=== PATIENT | female | born 1955 | race Caucasian/White ===

== ENCOUNTER 2023-01-11 10:08 | Outpatient (AMB) | payer MEDICARE, SELFPAY ==
--- NOTE | 2023-01-11 10:16 | A.OFFVIS_ITS ---
Intake Vital Signs 01/11/23 10:20 Height 5 ft 5.5 in Weight 134 lb 7.712 oz BMI 22.0 BP 112/54 L Blood Pressure Location Lt brachial Position Sitting Pulse 92 Intake Visit Reasons: Internal Hemorrhoids Intake Note: Olive presents in the office as a new patient for internal hemorrhoids. CC: She states that she is having issues with her gastro but internal hemorrhoids were found on the colonoscopy. She states her bowels used to be more diarrhea but now it is constipation and fecal incontinence. She has bloating and pains in her stomach. Allergies amoxicillin Allergy (Mild, Verified 01/11/23 10:21) Unknown ciprofloxacin [From Cipro] Allergy (Mild, Verified 01/11/23 10:21) Unknown Sulfa (Sulfonamide Antibiotics) Allergy (Mild, Verified 01/11/23 10:21) Unknown z pack Allergy (Mild, Uncoded 01/11/23 10:21) Unknown HPI Internal Hemorrhoids HPI Details 67 yr old patient being seen for assessm ent for abn bowel habits She had an iron gut till [id number] she noted mostly diarrhea -going several times to toilet now its mostly constipation and fecal incontinence-- she can be unaware of stool being passed and she uses toilet paper to plug her anal area she has degen scoliosis --she denies sciatica, or pins and needles she can have several days without going to bathroom when she does go she can have several bouts of soft stools at time she has changed diet and this helped the stools less diarrheal and more constipation bothered by milk, bread and cheese, no nausea no vomiting no blood in stools she use to have heartburn, but not as noticeable she can have bloating She had colonoscopy, stool tests and CT, colonoscopy was neg, CT with possible renal lesion, being followed by urology PMH:low BP PSH: c section 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, 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, 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 FH:kidney disease ROS: Constitutional : No Weight loss, No Fever, No Chills ENT/Mouth : No sore throat, No Rhinorrhea Eyes: No Swelling, No Redness Cardiovascular : No Chest Pain, No SOB, No Edema Respiratory : No Cough, No Sputum, No Wheezing Gastrointestinal : see HPI Genitourinary : NO Dysuria, No Urinary Frequency, No Hematuria, No Urgency Musculoskeletal : No joint pain, No Myalgias, No Joint Swelling Skin : No Skin Lesions, No rash Neuro : No Weakness, No Numbness, No Dizziness, No Headache Psych : No Anxiety/Panic, No Depression Heme/Lymph: No Bruising, No Lymphadenopathy Endocrine : No Polyuria, No Polydipsia All other systems reviewed and are negative. EXAM: GENERAL: The patient is well developed and nontoxic. VITAL SIGNS:see workflow HEENT: Nonicteric sclerae, PERRLA, EOMI. Oropharynx clear. Moist mucous membranes. Conjunctivae appear well perfused. No thyroid mass. CHEST: Chest wall is nontender. HEART: Regular rate and rhythm without murmurs. LUNGS: Clear to auscultation bilaterally. ABDOMEN: Soft, positive bowel sounds, nontender, no organomegaly.no flank tenderness GENITAL:not done RECTAL: reduced sphincter tone, good evacuation and pushing pressure, nml sensation, no masses SKIN: No rash, no excessive bruising, petechiae, or purpura. NEUROLOGIC: Cranial nerves II-XII intact without motor/sensory deficit. scoliosis A/P: 1/ fecal incontinence, possible 2/2 nerv e damage from scoliosis or other injury 2/ bloating and constipation, ? SIBO, co lonic dysmotility, less likely, IBD< celiac, food intolerance, food allergies Plan: 1/ KUB 2/ trial of rifaximin, 3/ might consider ARM, defcography, disc ussed possible spinal stim (she has no urine incontinence) 4/ get labs and TSH PFSH Surgical History (Updated 01/11/23 @ 10:22 by BRISA Bran) Hx of knee surgery Hx of colonoscopy Social History (Updated 01/11/23 @ 10:22 by BRISA Bran) Household Members: None Alcohol intake: current Alcohol intake frequency: holidays/special occasions only Patient Tobacco Use Status: Never used Tobacco Physical Exam Vital Signs: Last Vital Signs Pulse 92 01/11/23 10:20 BP 112/54 L 01/11/23 10:20 BMI result Body Mass Index 22.0 Assessment & Plan Assessment & Plan (1) Altered bowel habits: Code(s): R19.4 - Change in bowel habit Orders: Orders XR KUB Today R19.4 - Change in bowel habit Medications: New rifaximin 550 mg PO TID 2 weeks 42 tabs 0RF Coding Level of Care Code New Pt Level 4 (41033) Diagnoses Altered bowel habits R19.4
[2023-01-11 10:20] VITALS: BP 112/54; PULSE 92; BMI 22.0
== END 2023-01-11 11:25 | disposition home or self-care (01) ==
PROVIDERS: PCP Internal Medicine Geriatric Medicine; Visit Provider Internal Medicine Gastroenterology
DX: R19.4 Change in bowel habit (principal)
CPT/HCPCS: 99204

== ENCOUNTER → 2023-01-11 10:08 | Outpatient (BNVA) | payer MEDICARE, SELFPAY | PROVIDERS: PCP Internal Medicine Geriatric Medicine; Visit Provider Internal Medicine Gastroenterology | DX: R19.4 Change in bowel habit (principal) | CPT/HCPCS: 99202 ==

== ENCOUNTER 2023-01-11 11:28 | Outpatient (REF) | payer MEDICARE, SELFPAY ==
--- NOTE | ~2023-01-11 | XR_ITS ---
EXAMINATION: XR ABDOMEN KUB CLINICAL INDICATION: Change in bowel habit, constipation. COMPARISON: None available. TECHNIQUE: 2 AP views of the abdomen. FINDINGS: Dextroscoliosis of the lumbar spine with advanced multilevel degenerative changes. Large amount of stool in the colon is compatible with stated history of constipation. Nonobstructive bowel gas pattern. Amorphous sclerotic/calcific density projects over the right intertrochanteric region, possibly representing a bony lesion versus soft tissue calcification. Dedicated views of the right hip are recommended for further evaluation. XR/XR KUB IMPRESSION: Large amount of stool in the colon is compatible with stated history of constipation. Nonobstructive bowel gas pattern. Amorphous sclerotic/calcific density projects over the right intertrochanteric region, possibly representing a bony lesion versus soft tissue calcification. Dedicated views of the right hip are recommended for further evaluation.
== END 2023-01-11 11:29 | disposition home or self-care (01) ==
LOC: HO.XRAY 11:28
PROVIDERS: PCP Internal Medicine Geriatric Medicine; Visit Provider Internal Medicine Gastroenterology
DX: R19.4 Change in bowel habit (principal)
CPT/HCPCS: 74018

== ENCOUNTER 2023-02-10 10:57 | Outpatient (REF) | payer MEDICARE, SELFPAY ==
--- NOTE | ~2023-02-10 | XR_ITS ---
EXAMINATION: XR HIP, RIGHT CLINICAL INFORMATION: Follow-up sclerotic density of right intertrochanteric region. COMPARISON: KUB dated 01/11/2023. TECHNIQUE: Two views of the right hip. FINDINGS: No fracture. Alignment is anatomic. Hip joint space is maintained. The right femoral head appears smooth. A small sclerotic, well marginated bone island is incidentally noted within the intertrochanteric region of the proximal right femur. Soft tissues are unremarkable. There are incompletely characterized degenerative changes of the lower lumbar spine. XR/XR hip RT min 2V IMPRESSION: A small sclerotic, well marginated bone island is incidentally noted within the intertrochanteric region of the proximal right femur. This has a benign, nonaggressive appearance. The examination is otherwise unremarkable.
== END 2023-02-10 10:58 | disposition home or self-care (01) ==
LOC: HO.HMGCX 10:57
PROVIDERS: PCP Internal Medicine Geriatric Medicine; Visit Provider Internal Medicine Gastroenterology
DX: M89.8X5 Other specified disorders of bone, thigh (principal)
CPT/HCPCS: 73502

== ENCOUNTER 2023-04-05 09:43 | Outpatient (AMB) | payer MEDICARE, SELFPAY ==
[2023-04-05 09:58] VITALS: BMI 22.3
--- NOTE | 2023-04-05 09:58 | A.OFFVIS_ITS ---
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 Patient describes her pain as sharp in nature. She denies any weakness in either lower extremity. She has tried Tylenol and anti-inflammatory medicines which gave her minimal relief. The patient states that she is currently undergoing evaluation for a gastrointestinal disorder. The patient states that she was told that her gastrointestinal issues might be related to lumbar spine pathology. Allergies amoxicillin Allergy (Mild, Verified 04/05/23 10:03) Unknown ciprofloxacin [From Cipro] Allergy (Mild, Verified 04/05/23 10:03) Unknown Sulfa (Sulfonamide Antibiotics) Allergy (Mild, Verified 04/05/23 10:03) Unknown z pack Allergy (Mild, Uncoded 01/11/23 10:21) Unknown Medication List - Last Reconciled 04/05/23 by Willi Evans MD calcium citrate-vitamin D3 315 mg-5 mcg (200 unit) (Calcium Citrate + D) 1 tab PO DAILY coenzyme Q10 100 mg PO DAILY estradiol 1 packet transdermal DAILY estradiol 0.01%(0.1mg/gram) 1 g vaginal QWEEK fexofenadine 60 mg PO DAILY magnesium 200 mg PO DAILY multivitamin 1 tab PO DAILY progesterone micronized 200 mg PO BEDTIME psyllium husk (Metamucil) 1 tbsp PO DAILY rifaximin 550 mg PO TID 2 weeks PFSH Surgical History (Updated 01/11/23 @ 10:22 by BRISA Bran) Hx of knee surgery Hx of colonoscopy Social History (Updated 01/11/23 @ 10:22 by BRISA Bran) Household Members: None Alcohol intake: current Alcohol intake frequency: holidays/special occasions only Patient Tobacco Use Status: Never used Tobacco Physical Exam Vital Signs: BMI result Body Mass Index 22.3 Const Other: Well-nourished well-developed very friendly female awake alert and oriented x3 in no acute distress Back/Spine/Pelvis Other: Low back examination shows right-sided paraspinal muscle tenderness, pain with range of motion, positive straight leg raise test on the right at 70 degrees Extrem Other: Right hip examination shows minimal discomfort with range of motion, mild tenderness over her bursa Results Reviewed Results Reviewed: X-rays of the patient's right hip show mild diffuse joint space narrowing as well as a small, sclerotic, well-marginated bone island within the proximal femur, no acute bony abnormalities X-ray of the patient's lumbar spine shows advanced diffuse degenerative disc disease, no acute bony abnormalities Assessment & Plan Assessment & Plan (1) Low back pain: Code(s): M54.50 - Low back pain, unspecified Plan Ms. Shaver presents with progressively worsening low back pain which radiates down the posterior aspect of her right leg most likely due to lumbar stenosis or a disc herniation. The patient also has gastrointestinal problems which could be related to lumbar spine pathology. Thus, I will send her for an MRI of her lumbar spine for further evaluation. I will contact her by phone once the MRI results are available. She will call me prior to that time should her symptoms worsen in any way. Feel free to call me at any time should questions regarding her orthopedic management arise. I spent 22 minutes in reviewing the patient's records and imaging studies, seeing the patient and documenting in the medical record. Orders: Orders MR lumbar spine wo con Today M54.50 - Low back pain, unspecified Coding Level of Care Code New Pt Level 2 (50212) Diagnoses Low back pain M54.50
== END 2023-04-05 10:42 | disposition home or self-care (01) ==
PROVIDERS: PCP Internal Medicine Geriatric Medicine; Visit Provider Orthopaedic Surgery
DX: M54.50 Low back pain, unspecified (principal)
CPT/HCPCS: 99202

== ENCOUNTER → 2023-04-05 09:43 | Outpatient (BNVA) | payer MEDICARE, SELFPAY | PROVIDERS: PCP Internal Medicine Geriatric Medicine; Visit Provider Orthopaedic Surgery | DX: M54.50 Low back pain, unspecified (principal) | CPT/HCPCS: 99202 ==

== ENCOUNTER 2023-07-22 10:05 | Outpatient (REF) | payer MEDICARE, SELFPAY ==
--- NOTE | ~2023-07-22 | MR_ITS ---
EXAMINATION: MR LUMBAR SPINE WITHOUT CONTRAST CLINICAL INFORMATION: Low back pain COMPARISON: None available. TECHNIQUE: MRI of the lumbar spine was obtained using routine sequences without contrast. FINDINGS: There are marked T12-L1 dextroscoliosis and mild L4-L5 levoscoliosis. Evaluation of the intervertebral discs show: T12/L1: Intervertebral disc height is markedly decreased with marked loss of T2 signal in the left half. Moderate midline posterior disc extrusion along posterior border of L1 is seen. Bilateral T12/L1 neuroforamina are patent. Bilateral apophyseal joints are intact with normal alignment. Bilateral apophyseal joints show loss of joint space, sclerosis, facet hypertrophy and osteophytosis. L-1/L-2: Intervertebral disc height is markedly decreased with marked loss of T2 signal in the left half. Mild posterior and asymmetric left foraminal disc protrusion is seen. There is mild asymmetric left L1-L2 neuroforaminal stenosis. Bilateral apophyseal joints are intact with normal alignment. Bilateral apophyseal joints show loss of joint space, sclerosis, facet hypertrophy and osteophytosis. L2/L3: Intervertebral disc height is markedly decreased, with moderate loss of T2 signal. Mild posterior and bilateral foraminal disc protrusion is seen. Bilateral L2-L3 neuroforamina are patent. Bilateral apophyseal joints are intact with normal alignment. Bilateral apophyseal joints show loss of joint space, sclerosis, facet hypertrophy and osteophytosis. L3/L4: Intervertebral disc height is normal, with moderate loss of T2 signal. Mild posterior and bilateral foraminal disc protrusion is seen. There is mild spinal stenosis due to impingement by hypertrophic ligamentum flavum. Bilateral L3-L4 neuroforamina are patent. Bilateral apophyseal joints are intact with normal alignment. Bilateral apophyseal joints show loss of joint space, sclerosis, facet hypertrophy and osteophytosis. L4/L5: Intervertebral disc height is markedly decreased, with marked loss of T2 signal. Mild posterior and bilateral foraminal disc protrusion is seen. There is marked asymmetric right L4-L5 neuroforaminal stenosis. Bilateral apophyseal joints are intact with normal alignment. Bilateral apophyseal joints show loss of joint space, sclerosis, facet hypertrophy and osteophytosis. L5/S1: Intervertebral disc height is normal, with normal T2 signal. No posterior disc protrusion is seen. Bilateral L5-S1 neuroforamina are patent. Bilateral apophyseal joints are intact with normal alignment. Bilateral apophyseal joints show loss of joint space, sclerosis, facet hypertrophy and osteophytosis. Conus medullaris is seen normally at L1-L2 junction level. MR/MR lumbar spine wo con IMPRESSION: 1. Marked T12-L1 dextroscoliosis and mild L4-L5 levoscoliosis. 2. Multilevel advanced lumbar spondylosis including multilevel degenerative lumbar disc disease, relatively sparing L5-S1 level, multilevel posterior lumbar disc protrusion. 3. Moderate midline posterior disc extrusion along posterior border of L1. 4. Mild spinal stenosis at L3-L4 due to impingement by hypertrophic ligamentum flavum. 5. Marked asymmetric right L4-L5 and Mild asymmetric left L1-L2 neuroforaminal stenosis.
== END 2023-07-22 10:06 | disposition home or self-care (01) ==
LOC: HO.MRI 10:05
PROVIDERS: PCP Internal Medicine Geriatric Medicine; Visit Provider Orthopaedic Surgery
DX: M54.50 Low back pain, unspecified (principal)
CPT/HCPCS: 72148

== ENCOUNTER 2023-09-13 10:26 | Outpatient (AMB) | payer MEDICARE, SELFPAY ==
--- NOTE | 2023-09-13 10:29 | MHC.OFFVIS ---
Vital Signs 09/13/23 10:33 Height 5 ft 5 in Weight 125 lb 10.616 oz BMI 20.9 BP 141/65 H Blood Pressure Location Lt brachial Position Sitting Pulse 76 Intake Visit Reasons: 4 month f/u Intake Note: Olive presents in the office as a 4 month follow up. CC: She states that she states that the abx had a 750 copay that she was unable to do. Still having the same symptoms but she is now losing weight. 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 Allergies amoxicillin Allergy (Mild, Verified 09/13/23 10:34) Unknown ciprofloxacin [From Cipro] Allergy (Mild, Verified 09/13/23 10:34) Unknown Sulfa (Sulfonamide Antibiotics) Allergy (Mild, Verified 09/13/23 10:34) Unknown z pack Allergy (Mild, Uncoded 09/13/23 10:34) Unknown HPI HPI 4 month f/u: Details: 67 yr old patient being seen for f/u for abn bowel habits RECAP She had an iron gut till [id number] she noted mostly diarrhea -going several times to toilet now its mostly constipation and fecal incontinence-- she can be unaware of stool being passed and she uses toilet paper to plug her anal area she has degen scoliosis --she denies sciatica, or pins and needles she can have several days without going to bathroom when she does go she can have several bouts of soft stools at time she has changed diet and this helped the stools less diarrheal and more constipation bothered by milk, bread and cheese, She had colonoscopy, stool tests and CT, colonoscopy was neg, CT with possible renal lesion, being followed by urology KUB: constipation, dextroscoliosis INTERIM: she has been losing weight per chart 10# over the last year she has noted fecal incontincence, more on the constipation pain lower abdomen bloating no nausea no vomiting she had occult blood in stools from a test done by functional doctor she tried bactrim from her functional doctor and it helped PMH:low BP PSH: c section 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, 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, 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 FH:kidney disease ROS: Constitutional : No Weight loss, No Fever, No Chills ENT/Mouth : No sore throat, No Rhinorrhea Eyes: No Swelling, No Redness Cardiovascular : No Chest Pain, No SOB, No Edema Respiratory : No Cough, No Sputum, No Wheezing Gastrointestinal : see HPI Genitourinary : NO Dysuria, No Urinary Frequency, No Hematuria, No Urgency Musculoskeletal : No joint pain, No Myalgias, No Joint Swelling Skin : No Skin Lesions, No rash Neuro : No Weakness, No Numbness, No Dizziness, No Headache Psych : No Anxiety/Panic, No Depression Heme/Lymph: No Bruising, No Lymphadenopathy Endocrine : No Polyuria, No Polydipsia All other systems reviewed and are negative. EXAM: GENERAL: The patient is well developed and nontoxic. VITAL SIGNS:see workflow HEENT: Nonicteric sclerae, PERRLA, EOMI. Oropharynx clear. Moist mucous membranes. Conjunctivae appear well perfused. No thyroid mass. CHEST: Chest wall is nontender. HEART: Regular rate and rhythm without murmurs. LUNGS: Clear to auscultation bilaterally. ABDOMEN: Soft, positive bowel sounds, nontender, no organomegaly.no flank tenderness GENITAL:not done RECTAL: reduced sphincter tone, good evacuation and pushing pressure, nml sensation, no masses SKIN: No rash, no excessive bruising, petechiae, or purpura. NEUROLOGIC: Cranial nerves II-XII intact without motor/sensory deficit. scoliosis A/P: 1/ altered bowel habits, fecal occult blood pos 2/ weight loss her sx may be due to her severe scoliosis, imaging reviewed with patient Plan: 1/ Labs as below 2/ colonoscopy, with suprep, for altered bowel habits and pos FOB 3/ can try VSL#3, also discussed posisble repeat on bactrim with fluconazole as she is prone to thrush PFSH Surgical History Hx of knee surgery Hx of colonoscopy Social History Household Members: None Alcohol intake: current Alcohol intake frequency: holidays/special occasions only Patient Tobacco Use Status: Never used Tobacco Physical Exam Vital Signs: Last Vital Signs Pulse 76 09/13/23 10:33 BP 141/65 H 09/13/23 10:33 BMI result Body Mass Index 20.9 Assessment & Plan Assessment & Plan (1) Altered bowel habits: Code(s): R19.4 - Change in bowel habit Category: Medical Plan: see above (2) Malnutrition: Code(s): E46 - Unspecified protein-calorie malnutrition Category: Medical Plan: see above Orders: Orders Comprehensive Met. Panel Today E46 - Unspecified protein-calorie malnutrition, K75.81 - Nonalcoholic steatohepatitis (BELL), R19.4 - Change in bowel habit Lactoferrin, Fecal, Quant. Today E46 - Unspecified protein-calorie malnutrition, K51.50 - Left sided colitis without complications, R19.4 - Change in bowel habit Erythrocyte Sedimentation Rate Today E46 - Unspecified protein-calorie malnutrition, R19.4 - Change in bowel habit Ferritin Today E46 - Unspecified protein-calorie malnutrition, R19.4 - Change in bowel habit Vitamin A Today E46 - Unspecified protein-calorie malnutrition, R19.4 - Change in bowel habit Vitamin B1 Today E46 - Unspecified protein-calorie malnutrition, R19.4 - Change in bowel habit Vitamin B12 and Folate Today E46 - Unspecified protein-calorie malnutrition, R19.4 - Change in bowel habit Vitamin C Today E46 - Unspecified protein-calorie malnutrition, R19.4 - Change in bowel habit Vitamin D 25-OH Total Today E46 - Unspecified protein-calorie malnutrition, R19.4 - Change in bowel habit Histamine Plasma Today E46 - Unspecified protein-calorie malnutrition, R19.4 - Change in bowel habit Complete Blood Count Auto Diff Today E46 - Unspecified protein-calorie malnutrition, R19.4 - Change in bowel habit Vitamin B3 (Niacin) Today E46 - Unspecified protein-calorie malnutrition, R19.4 - Change in bowel habit Vitamin B5 (Pantothenic Acid) Today E46 - Unspecified protein-calorie malnutrition, R19.4 - Change in bowel habit Vitamin B6 Today E46 - Unspecified protein-calorie malnutrition, R19.4 - Change in bowel habit Vitamin E Today E46 - Unspecified protein-calorie malnutrition, R19.4 - Change in bowel habit Vitamin K1 Today E46 - Unspecified protein-calorie malnutrition, R19.4 - Change in bowel habit Zinc Today E46 - Unspecified protein-calorie malnutrition, R19.4 - Change in bowel habit Medications: New sodium,potassium,mag sulfates 17.5-3.13-1.6 gram (Suprep Bowel Prep Kit) DILUTE; drink 1/2 at 6-8 pm and half at 11 PM- 1AM 354 mL 0RF Discontinued rifaximin Discontinued Reason: Patient no longer taking 550 mg PO TID 2 weeks 42 tabs 0RF Coding Level of Care Code Est Pt Level 4 (64740) Diagnoses Altered bowel habits R19.4 Malnutrition E46
[2023-09-13 10:33] VITALS: BP 141/65; PULSE 76; BMI 20.9
== END 2023-09-13 11:24 | disposition home or self-care (01) ==
PROVIDERS: PCP Internal Medicine Geriatric Medicine; Visit Provider Internal Medicine Gastroenterology
DX: R19.4 Change in bowel habit (principal); E46 Unspecified protein-calorie malnutrition
CPT/HCPCS: 99214

== ENCOUNTER 2023-09-13 10:26 | Outpatient (REF) | payer MEDICARE, SELFPAY ==
[2023-09-13 12:07] LABS: MANUAL DIFF FLAG NO
[2023-09-13 13:02] LABS: Basophils Percent Auto 0.6 % (0-2); Eosinophils Absolute Auto 0.2 X10*3/uL (0.0-0.4); Eosinophils Percent Auto 2.9 % (0-4); Hematocrit 37.6 % (37.0-47.0); Hemoglobin 13.1 g/dl (12.0-16.0); Imm Gran Abs Auto 0.02 X10*3/uL (0.00-0.03); Imm Gran Pct Auto 0.3 % (0.0-0.4); Lymphocytes Absolute Auto 1.4 X10*3/uL (1.2-4.9); Lymphocytes Percent Auto 21.5 % (20-40); Mean Corpuscular HGB Conc 34.8 g/dl (31.0-35.0); Mean Corpuscular Hemoglobin 31.3 pg (27.0-33.0); Mean Platelet Volume 10.2 fL (9.4-12.3); Monocytes Absolute Auto 0.5 X10*3/uL (0.1-1.2); Monocytes Percent Auto 7.6 % (2-11); Neutrophils Absolute Auto 4.4 x10*3/uL (2.0-8.3); Neutrophils Percent Auto 67.1 % (45-73); Platelet Count 188 X10*3/uL (160-400); Red Blood Count 4.18 X10*6/uL (4.20-5.50); Red Cell Distribution Width 12.6 % (11.0-16.0); White Blood Count 6.6 X10*3/uL (4.8-10.8)
[2023-09-13 13:37] LABS: Alanine Aminotransferase 18 U/L (0-31); Albumin Level 4.7 g/dL (3.5-5.0); Alkaline Phosphatase 54 U/L (39-117); Anion Gap 12 (12-20); Aspartate Amino Transferase 20 U/L (5-31); Bilirubin Total 0.7 mg/dL (0.0-1.0); Blood Urea Nitrogen 10 mg/dL (9-16); Calcium 9.3 mg/dL (8.4-10.2); Carbon Dioxide 23 mmol/L (22-29); Chloride 100 mmol/L (96-108); Estimated Glomerular Filt Rate > 60; Glucose Random 89 mg/dL (60-115); Potassium 3.9 mmol/L (3.3-5.1); Sodium 131 mmol/L (135-145); Total Protein 7.2 g/dL (6.5-8.0)
[2023-09-13 13:45] LABS: Erythrocyte Sedimentation Rate 3 MM/HR (0-20)
[2023-09-13 13:48] LABS: Ferritin 122 ng/mL (10-250); Vitamin D 25-OH Total 59.9 ng/mL (>30)
[2023-09-13 13:57] LABS: Folate 12.9 ng/mL (> or = 4.0); Vitamin B12 666 pg/mL (200-900)
[2023-09-16 02:49] LABS: Zinc 50 mcg/dL (60-130)
[2023-09-16 19:04] LABS: Alpha-Tocopherol 21.8 mg/L (5.7-19.9); Beta-Gamma Tocopherol <1.0 mg/L (<=4.3)
[2023-09-17 16:13] LABS: Vitamin B5 (Pantothenic Acid) 85 ng/mL (<275)
[2023-09-17 16:53] LABS: Vitamin C 1.9 mg/dL (0.3-2.7)
[2023-09-18 15:03] LABS: Vitamin K1 879 pg/mL (130-1500)
[2023-09-21 17:33] LABS: Histamine Plasma <1.5 ng/mL (< OR = 1.8)
[2023-10-07 11:02] LABS: Vitamin A 54
[2023-10-07 11:03] LABS: Vitamin B1 21
[2023-10-07 11:05] LABS: Nicotinamide <20; Vit B3 - Nicotinic Acid <20
== END 2023-09-13 10:27 | disposition home or self-care (01) ==
LOC: HO.LAB 10:26
PROVIDERS: PCP Internal Medicine Geriatric Medicine; Visit Provider Internal Medicine Gastroenterology
DX: K75.81 Nonalcoholic steatohepatitis (NASH) (principal); K59.00 Constipation, unspecified; K51.50 Left sided colitis without complications; E46 Unspecified protein-calorie malnutrition
CPT/HCPCS: 36415; 80053; 82180; 82306; 82607; 82728; 82746; 83088; 84207; 84425; 84446; 84590; 84591; 84597; 84630; 85025; 85652; 99212

== ENCOUNTER 2023-09-17 08:47 | Outpatient (REF) | payer MEDICARE, SELFPAY ==
--- NOTE | ~2023-09-17 | XR_ITS ---
EXAMINATION: XR LUMBOSACRAL SPINE CLINICAL INFORMATION: Secondary scoliosis, lumbar region. COMPARISON: MRI dated 07/22/2023 TECHNIQUE: Three views of the lumbosacral spine. FINDINGS: Moderate right convex lumbar scoliosis is centered at the level of L1. No spondylolisthesis. Multilevel degenerative disc disease in the lumbar spine is characterized by loss of vertebral disc height and endplate osteophytes, most pronounced at L4-L5 and along the inner curvature from T12-L1 through L2-L3. Facet arthropathy in the lower lumbar spine is asymmetric to the right, most notably at L4-L5 and L5-S1. SI joints are unremarkable. XR/XR lumbar spine 2-3V IMPRESSION: Moderate right convex lumbar scoliosis with multilevel degenerative disc disease and facet arthropathy.
== END 2023-09-17 08:48 | disposition home or self-care (01) ==
LOC: HO.HOSX 08:47
PROVIDERS: PCP Internal Medicine Geriatric Medicine; Visit Provider Neurological Surgery
DX: M51.36 Other intervertebral disc degeneration, lumbar region (principal); M41.56 Other secondary scoliosis, lumbar region
CPT/HCPCS: 72100; 99202

== ENCOUNTER 2023-09-17 09:10 | Outpatient (REF) | payer MEDICARE, SELFPAY ==
[2023-09-25 16:58] LABS: Lactoferrin, Fecal, Quant. <6.25 mcg/mL (<7.25)
== END 2023-09-17 09:11 | disposition home or self-care (01) ==
LOC: HO.LNP 09:10
PROVIDERS: Visit Provider Internal Medicine Gastroenterology
DX: K51.50 Left sided colitis without complications (principal); R19.4 Change in bowel habit; E46 Unspecified protein-calorie malnutrition
CPT/HCPCS: 83631

== ENCOUNTER 2024-01-20 08:40 | Day surgery (SDC) | payer MEDICARE, SELFPAY ==
[2024-01-18 13:10] VITALS: BMI 20.8
--- NOTE | 2024-01-19 09:20 | HO.ANESPROP2 ---
Documented by User: Greer Cardona NP 01/19/24 09:21 HPI - Anesthesia Eval Consult details Narrative: 68yo F for Colonoscopy PMFSH Active Problems Active Problems: All Active Problems Scoliosis of lumbar region due to degenerative disease of spine in adult (Acute) Malnutrition (Acute) Lumbar stenosis (Acute) Low back pain (Acute) Lytic bone lesion of hip (Acute) Altered bowel habits (Acute) Past Medical History Medical History Scoliosis Lumbar stenosis Kidney lesion Hypotension Surgical History Surgical History Hx of section Hx of knee surgery Hx of colonoscopy Social History Social History Household Members: None Alcohol intake: current Alcohol intake frequency: holidays/special occasions only Patient Tobacco Use Status: Former Tobacco user Use of substances other than those prescribed or required for medical reasons: No Are you DNR?: No Advance Directives: No Advance Directives Information Provided: Yes Recently lost weight without trying: No Meds Allergies Allergy/AdvReac Type Severity Reaction Status Date / Time amoxicillin Allergy Mild Unknown Verified 01/20/24 09:05 ciprofloxacin [From Cipro] Allergy Mild Unknown Verified 01/20/24 09:05 Sulfa (Sulfonamide Allergy Mild Unknown Verified 01/20/24 09:05 Antibiotics) z pack Allergy Mild Unknown Uncoded 09/13/23 10:34 Home Medications ?Medication ?Instructions ?Recorded ?Confirmed ?Last Taken ?Type calcium citrate 315 mg-vitamin D3 1 tab PO DAILY 01/11/23 01/20/24 Unknown History 5 mcg (200 unit) tablet (Calcium Citrate + D) coenzyme Q10 100 mg capsule 100 mg PO DAILY 01/11/23 01/20/24 Unknown History estradiol 0.01% (0.1 mg/gram) 1 g vaginal QWEEK 01/11/23 01/20/24 Unknown History vaginal cream fexofenadine 60 mg tablet 60 mg PO DAILY 01/11/23 01/20/24 Unknown History magnesium 200 mg tablet 200 mg PO DAILY 01/11/23 01/20/24 Unknown History multivitamin 1 tab PO DAILY 01/11/23 01/20/24 Unknown History progesterone micronized 200 mg 200 mg PO BEDTIME 01/11/23 01/20/24 Unknown History capsule psyllium husk 3.4 gram/5.4 gram 1 tbsp PO DAILY 01/11/23 01/20/24 Unknown History oral powder (Metamucil) estradiol 0.05 mg/24 hr semiweekly 1 patch transdermal 2XW 09/13/23 01/20/24 Unknown History transdermal patch Exam Height,Weight and Vital Signs: Height 5 ft 5 in Weight 56.699 kg Assessment and Plan Assessment Anesthesia Assessment: Chart Reviewed Documented by User: Sudha Livingston MD 01/20/24 10:28 FORMERLY [facility], [facility] Past Medical History Medical History Scoliosis Lumbar stenosis Kidney lesion Hypotension Surgical History Surgical History Hx of section Hx of knee surgery Hx of colonoscopy History of Problems with Anesthesia: No Social History Social History Household Members: None Alcohol intake: current Alcohol intake frequency: holidays/special occasions only Patient Tobacco Use Status: Former Tobacco user Use of substances other than those prescribed or required for medical reasons: No Are you DNR?: No Advance Directives: No Advance Directives Information Provided: Yes Recently lost weight without trying: No Meds Allergies Allergy/AdvReac Type Severity Reaction Status Date / Time amoxicillin Allergy Mild Unknown Verified 01/20/24 09:05 ciprofloxacin [From Cipro] Allergy Mild Unknown Verified 01/20/24 09:05 Sulfa (Sulfonamide Allergy Mild Unknown Verified 01/20/24 09:05 Antibiotics) z pack Allergy Mild Unknown Uncoded 09/13/23 10:34 Home Medications ?Medication ?Instructions ?Recorded ?Confirmed ?Last Taken ?Type calcium citrate 315 mg-vitamin D3 1 tab PO DAILY 01/11/23 01/20/24 Unknown History 5 mcg (200 unit) tablet (Calcium Citrate + D) coenzyme Q10 100 mg capsule 100 mg PO DAILY 01/11/23 01/20/24 Unknown History estradiol 0.01% (0.1 mg/gram) 1 g vaginal QWEEK 01/11/23 01/20/24 Unknown History vaginal cream fexofenadine 60 mg tablet 60 mg PO DAILY 01/11/23 01/20/24 Unknown History magnesium 200 mg tablet 200 mg PO DAILY 01/11/23 01/20/24 Unknown History multivitamin 1 tab PO DAILY 01/11/23 01/20/24 Unknown History progesterone micronized 200 mg 200 mg PO BEDTIME 01/11/23 01/20/24 Unknown History capsule psyllium husk 3.4 gram/5.4 gram 1 tbsp PO DAILY 01/11/23 01/20/24 Unknown History oral powder (Metamucil) estradiol 0.05 mg/24 hr semiweekly 1 patch transdermal 2XW 09/13/23 01/20/24 Unknown History transdermal patch Exam Airway Mallampati Class: II TM Dist: >3cm Neck ROM: Full Loose/Missing/Broken Teeth: No Heart: RRR Lungs: CTA Assessment and Plan Assessment Anesthesia Assessment: Anesthesia Plan Discussed Final Anesthetic Review History of Problems with Anesthesia: No NPO: Yes ASA Class: II Final Preanesthetic Review: Meds/Allgs Chart Reviewed, Consent Obtained/Reviewed and Anes Risks/Benef Reviewed Patient Risk: Low Procedure Risk: Low Anesthetic Plan Anesthetic Plan: MAC: Disposition: Standard PACU
[2024-01-20 09:06] VITALS: BMI 20.1
[2024-01-20 09:14] VITALS: BP 112/82; PULSE 69; RESP 15; TEMP 36.4; O2SAT 99
[2024-01-20] MEDS: Lactated Ringers 1,000 ML 100 ML IVCONT (09:29)
--- NOTE | 2024-01-20 09:33 | P.HPSUR_ITS ---
Pre-Procedural Eval Section A - 24 Hr Update-Section A only Date of Service: 01/20/24 Section B - Complete if H&P > 30 days Chief Complaint: Change in bowel habit,protein-calorie malnutrtion Relevant Family History (Specify if Yes): No Relevant Social History: None Present Medications: see Short Stay Collaborative assessment Medical History: Significant History (scoliosis) History of Previous Operations: Relevant previous surgery/procedure and date(s) (c section ) Allergies: Allergies Allergy/AdvReac Type Severity Reaction Status Date / Time amoxicillin Allergy Mild Unknown Verified 01/20/24 09:05 ciprofloxacin [From Cipro] Allergy Mild Unknown Verified 01/20/24 09:05 Sulfa (Sulfonamide Allergy Mild Unknown Verified 01/20/24 09:05 Antibiotics) z pack Allergy Mild Unknown Uncoded 09/13/23 10:34 Review of Systems Sugical H&P ROS: Negative: Constitution, Cardiovascular, Respiratory, Neurological, Psychiatric, Hem-Onc, Allergic/Immunologic, Gastrointestinal, Genitourinary, Musculoskeletal, Integumentary, Endocrine and Eyes/Ears/Nose/Thr oat Exam Surgical H&P Exam: Normal: HEENT, Normal: Heart, Normal: Lungs, Normal: Extremities, Normal: Abdomen, Normal: Skin and Normal: Neurological Plan Diagnosis/Plan: Unchanged I have reviewed the history and physical and performed a pertinent physical examination on my patient. No changes have occurred unless specified. Time Spent With Patient Time: Total time managing care of this patient today ____ minutes.
--- NOTE | 2024-01-20 10:40 | P.OPN-COLO_ITS ---
Colonoscopy Operative Note Operative Note Date of Service: 01/20/24 Narrative: Operative Information Procedure Description: Colonoscopy Indication: abn bowel habits Anesthesia: MAC COLONOSCOPY Instrument: Olympus variable stiffness pediatric scope 190L Colonoscopy Monitoring: Vital signs and clinical assessment, continuous EKG monitoring, Pulse oximetry, Carbon Dioxide monitoring and blood pressure monitoring were done throughout the procedure. Colon withdrawal time was 9 minutes. Procedure: The patient was placed in the left lateral decubitis position and pre-procedure medications were administered. After a digital rectal examination of the ano-rectum, the video colonoscope was inserted into the rectum and advanced through the colon to the cecum/TI. The colonoscope was slowly withdrawn in a retrograde panoramic fashion and the colon mucosa was carefully examined including a retroflexed view of the rectum. Findings and interventions are described below. Procedure Difficulty: moderate, tortuous colon Findings: Terminal Ileum-normal, random bx taken Random colon bx taken from left, right and rectum Cecum:normal Ascending Colon: normal Transverse Colon -normal Descending Colon:normal Sigmoid Colon: normal Rectum: Retroflexion with small internal hemorrhoids seen, grade I Anorectum - normal Intervention: cold forceps Colon preparation: [facility] Bowel Preparation Scale Right colon; 2 Transverse colon: 3 Left colon; 3 (0 = Unprepared colon segment with mucosa not seen due to solid stool that cannot be cleared. 1 = Portion of mucosa of the colon segment seen, but other areas of the colon segment not well seen due to staining, residual stool and/or opaque liquid. 2 = Minor amount of residual staining, small fragments of stool and/or opaque liquid, but mucosa of colon segment seen well. 3 = Entire mucosa of colon segment seen well with no residual staining, small fragments of stool or opaque liquid) Impression and Post Procedure Diagnosis: tortuous colon internal hemorrhoids Plan: High fiber diet leaflet Avoid straining at stool, epsom salts and sitz bath, anusol supps or cream Repeat Colonoscopy in 10 years or earlier if clinically indicated Above findings were reviewed with the patient and relevant handouts were provided if indicated.
[2024-01-20 10:45] VITALS: BP 91/50; PULSE 66; RESP 18; TEMP 36.5; O2SAT 100
[2024-01-20 10:59] VITALS: BP 106/63; PULSE 64; RESP 16; O2SAT 100
[2024-01-20 11:15] VITALS: BP 113/58; PULSE 66; RESP 16; TEMP 36.3; O2SAT 97
== END 2024-01-20 11:54 | disposition home or self-care (01) ==
PROVIDERS: PCP Internal Medicine Geriatric Medicine; Visit Provider Internal Medicine Gastroenterology
PROC: 0DJD8ZZ Inspection of Lower Intestinal Tract, Via Natural or Artificial Opening Endoscopic (ICD-10-PCS; CPT 45378; principal; 2024-01-20 10:50)
DX: R19.4 Change in bowel habit (principal); K64.0 First degree hemorrhoids; E46 Unspecified protein-calorie malnutrition; R63.4 Abnormal weight loss; Z68.20 Body mass index [BMI] 20.0-20.9, adult; K51.50 Left sided colitis without complications; K75.81 Nonalcoholic steatohepatitis (NASH); M41.9 Scoliosis, unspecified; Z79.899 Other long term (current) drug therapy; Z88.1 Allergy status to other antibiotic agents; Z88.2 Allergy status to sulfonamides; Z87.891 Personal history of nicotine dependence; Z98.890 Other specified postprocedural states
CPT/HCPCS: 45380; 88305; 88342; J2003; J2704

== ENCOUNTER → 2024-01-20 08:40 | Outpatient (BNV) | payer MEDICARE, SELFPAY | PROVIDERS: PCP Internal Medicine Geriatric Medicine; Visit Provider Internal Medicine Gastroenterology | DX: R19.4 Change in bowel habit (principal); K64.8 Other hemorrhoids; Q43.8 Other specified congenital malformations of intestine | CPT/HCPCS: 45380 ==

== ENCOUNTER 2024-01-31 10:02 | Outpatient (AMB) | payer MEDICARE, SELFPAY ==
--- NOTE | 2024-01-31 10:02 | A.OFFVIS_ITS ---
Intake Visit Reasons: S/P [place]; Dr. Byrnes Intake Note: Olive presents as a video call follow up for a colo follow up. CC: states that she has all the same concerns and just would like to discuss some next steps. States that she would like the link to be sent to Allergies amoxicillin Allergy (Mild, Verified 01/31/24 10:02) Unknown ciprofloxacin [From Cipro] Allergy (Mild, Verified 01/31/24 10:02) Unknown Sulfa (Sulfonamide Antibiotics) Allergy (Mild, Verified 01/31/24 10:02) Unknown z pack Allergy (Mild, Uncoded 01/31/24 10:02) Unknown HPI HPI S/P [place]; Dr. Byrnes: Details: 68 yr old patient being called for f/u RECAP She had an iron gut till 2068-1059 she noted mostly diarrhea -going several times to toilet now its mostly constipation and fecal incontinence-- she can be unaware of stool being passed and she uses toilet paper to plug her anal area she has degen scoliosis --she denies sciatica, or pins and needles she can have several days without going to bathroom when she does go she can have several bouts of soft stools at time she has changed diet and this helped the stools less diarrheal and more constipation bothered by milk, bread and cheese, She had colonoscopy, stool tests and CT, colonoscopy was neg, CT with possible renal lesion, being followed by urology KUB: constipation, dextroscoliosis Colonoscopy:01/29 tortuous colon , internal hemorrhoids path-- normal INTERIM: called her for review of the colonoscopy and path report she has been having good amount of fiber still has fecal incontinence urine is normal no abdominal pain A/P: 1/ fecal incontinence -possible anatomical or may be 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 from her scolosis Plan: 1/ offered further tests with MR defecography and manometry, she wants to hold, offered PT referral also wants to hold for the moment, if sx worsen might be candidate for stim PFSH Medical History Scoliosis Lumbar stenosis Kidney lesion Hypotension Surgical History Hx of section Hx of knee surgery Hx of colonoscopy Social History Household Members: None Alcohol intake: current Alcohol intake frequency: holidays/special occasions only Patient Tobacco Use Status: Former Tobacco user Telehealth Telehealth Telehealth Platform: [employer] Location of provider rendering services: practice address Location of patient: address on file Patient Identification confirmed using: Name, : Yes Telehealth method: voice only Patient verbally consented to treatment: Yes Patient verbally consented to billing insurance company: Yes Patient informed of any privacy concerns related to visit: Yes Minutes spent on Phone/Video with Pt.: 7 Assessment & Plan Assessment & Plan (1) Altered bowel habits: Code(s): R19.4 - Change in bowel habit Category: Medical Plan: see above Coding Level of Care Code Tele Est Pt Level 3 (74043) Diagnoses Altered bowel habits R19.4
== END 2024-01-31 11:28 | disposition home or self-care (01) ==
LOC: HO.HGI 10:02
PROVIDERS: PCP Internal Medicine Geriatric Medicine; Visit Provider Internal Medicine Gastroenterology
DX: R19.4 Change in bowel habit (principal)
CPT/HCPCS: 99441

== ENCOUNTER 2024-05-31 13:13 | Outpatient (AMB) | payer OTHER, SELFPAY ==
--- NOTE | 2024-05-31 13:20 | AM.OFFWIN_ITS ---
Intake Vital Signs 05/31/24 13:22 Weight 132 lb BP 112/70 Blood Pressure Location Lt brachial Position Sitting Pulse 100 Pulse Source Pulse Oximeter Temp 98.6 F Temp Source Oral Pulse Oximetry (%) 98 Oxygen Delivery Method Room Air Intake Visit Reasons: [employer] very itchy rash, from neck down torso. Intake Note: Patient here for very itchy rash on back, torso and neck Patient Tobacco Use Status: Former Tobacco user Allergies amoxicillin Allergy (Mild, Verified 05/31/24 13:23) Unknown ciprofloxacin [From Cipro] Allergy (Mild, Verified 05/31/24 13:23) Unknown Sulfa (Sulfonamide Antibiotics) Allergy (Mild, Verified 05/31/24 13:23) Unknown z pack Allergy (Mild, Uncoded 05/31/24 13:23) Unknown Do you need a note to return to daycare/school/sports/work: No HPI HPI Comments History of Present Illness Details History of Present Illness - The patient is a 68 year old female pr esenting with rash evaluation and treatment. - The rash commenced after using a pain patch, leading to intense redness and itching. - Initially affected the back, spreading and worsening despite numerous attempts with lotions, soaps, and cleansing agents. - Former attempts with Claritin and David gra provided no relief, and hydrocortisone proceeded with some effect. - Recently noted rash extension to her l egs, aggravating itching episodes, managed self-control over scratching, but still engages at times. - Concerned about rash due to recent kid tutu biopsy and expected surgery for potential kidney cancer, expressing urgency in addressing pruritus. Physical Exam General: Cooperative, healthy appearing, comfortable, no acute distress and well developed Orientation: Patient oriented x3 Limitations: No limitations Head: Normal to inspection Ears: Hearing grossly normal bilaterally Nose: Normal External nose present Face and sinus: Normal facial exam Eyes: Appearance normal, both eyes and all related structures Neck: Normal visual inspection and Yes full ROM Respiratory: Normal respiratory effort and able to speak in complete sentences. Skin: confluent papules on erythematous base on trunk, chest, back, bilateral arms Neuro: Patient oriented x3 Extremities: Normal to inspection PFSH Medical History Scoliosis Lumbar stenosis Kidney lesion Hypotension Surgical History Hx of section Hx of knee surgery Hx of colonoscopy Social History Household Members: None Alcohol intake: current Alcohol intake frequency: holidays/special occasions only Patient Tobacco Use Status: Former Tobacco user Review of Systems Const All systems reviewed & are unremarkable except as noted in HPI and below Physical Exam Vital Signs: Last Vital Signs Temp 98.6 F 05/31/24 13:22 Pulse 100 05/31/24 13:22 BP 112/70 05/31/24 13:22 Pulse Ox 98 05/31/24 13:22 Oxygen Delivery Method Room Air 05/31/24 13:22 Assessment & Plan Assessment & Plan (1) Contact dermatitis: Code(s): L25.9 - Unspecified contact dermatitis, unspecified cause Qualifiers: Contact dermatitis type: allergic Contact dermatitis trigger: unspecified trigger Qualified Code(s): L23.9 - Allergic contact dermatitis, unspecified cause Plan: Patient does not like taking medications and requested the smallest amount of medication to be effective so a tailored a prednisone taper for 10 days starting at a lower dose than I typically would. I have diagnosed the patient with contact dermatitis and recommended initiating an oral steroid regimen to manage the extensive rash and its symptoms. I instructed the patient to follow a taper ed dosing schedule of prednisone, beginning with 30 mg daily for three days, followed by 20 mg for three days, and then 10 mg for four days to control the inflammation. I discussed potential side effects and advised taking the medication in the morning to reduce adverse effects. Hydroxyzine was prescribed for symptomatic relief of itching, particularly at night, to assist in sleep improvement. The patient is advised to eliminate potential allergens from personal care products and report to her surgeon about the prednisone usage to ensure safe management around her anticipated kidney surgery (date is TB). Patient was informed and verbally consented to the use of an ambient scribe for clinic note documentation during this visit. Medications: New prednisone take 3 tablets on days 1-3, take 2 tablets on days 4-6, take 1 tablets on days 7-10 10 mg PO DIRECTED 19 tabs 0RF hydroxyzine HCl 25 mg PO BEDTIME 7 tabs 0RF Coding Level of Care Code New Pt Level 3 (22503) Diagnoses Allergic contact dermatitis, unspecified trigger L23.9 Contact dermatitis type: allergic Contact dermatitis trigger: unspecified trigger
[2024-05-31 13:22] VITALS: BP 112/70; PULSE 100; TEMP 37; O2SAT 98
--- OUTSIDE RECORDS SUMMARY | 2024-05-31 15:41 | XMS_ITS | Encounter Summary ---
Author Organization [facility] Address [address] [place] [address] Care Team Providers Care Filter Press Pumper Name Role Phone Valeria Conway MD Primary Care Provider + [phone] Reason for Referral * Imaging (Routine) - Closed Specialty Diagnoses / Procedures Referred By Contac t Referred To Contact Radiology Diagnoses Neoplasm of uncertain behavior of right kidney Procedures CT Abdomen wo and w Contrast Jaycob Vega MD [address] [employer] [address] [place] [address] Phone: tel: fax: CT Scan - [facility] [address] [place] [address] Phone: tel: fax: Referral ID Status Reason Start Date Expiration Date Visits Re quested Visits Authorized [id number] Closed 04/20/2024 04/20/2025 1 1 Reason for Visit * Imaging (Routine) - Closed Specialty Diagnoses / Procedures Referred By Contac t Referred To Contact Radiology Diagnoses Neoplasm of uncertain behavior of right kidney Procedures CT Abdomen wo and w Contrast Jaycob Vega MD [address] [employer] [address] [place] [address] Phone: tel: fax: CT Scan - [facility] [address] [place] [address] Phone: tel: fax: Referral ID Status Reason Start Date Expiration Date Visits Re quested Visits Authorized [id number] Closed 04/20/2024 04/20/2025 1 1 Encounter Details Date Type Department Care Team (Latest Contact Info) Description 05/01/2024 9:36 AM EST - 05/01/2024 11:59 PM EST Hospital Encounter CT Scan - [facility] [address] [place] [address] Neoplasm of uncertain behavior of right kidney Discharge Disposition: Home or Self Care Social History Tobacco Use Types Packs/Day Years Used Date Smoking Tobacco: Never Smokeless Tobacco: Never Alcohol Use Standard Drinks/Week Comments Yes 0 (1 standard drink = 0.6 oz pur e alcohol) Comments Unknown Sex and Gender Information Value Date Recorded Sex Assigned at Not on file Legal Sex Female 8:27 PM EST Gender Identity Not on file Sexual Orientation Not on file documented as of this encounter Discharge Disposition Disposition Code Departure Means Destination Home or Self Care documented in this encounter Plan of Treatment Not on file documented as of this encounter Procedures Procedure Name Priority Date/Time Associated Diagnosis Comments CT ABDOMEN WO AND W CONTRAST Routine 05/01/2024 9:56 AM EST Neoplasm of uncertain behavior of right kidney documented in this encounter Results * CT Abdomen wo and w Contrast (05/01/2024 9:56 AM EST) Anatomical Region Laterality Modality Body Computed Tomogra phy 05/01/2024 11:1 5 AM EST Impressions 05/01/2024 11:40 AM EST Interval increase in size of the right mid pole solid renal mass, now with a new component that extends towards the renal pelvis. ??Findings are concerning for renal cell carcinoma. ??Urology consult is recommended. -------- FINAL REPORT -------- Dictated By: Alli Herrera Dictated Date: 05/01/2024 11:15 ET Assigned Physician: Alli Herrera Reviewed and Electronically Signed By: Alli Herrera Signed Date: 05/01/2024 11:40 ET Workstation ID: [id number] Transcribed By: Self Edit Transcribed Date: 05/01/2024 11:15 ET Narrative 05/01/2024 11:[address] ABDOMEN WO AND W CONTRAST TECHNIQUE: Multidetector CT of the abdomen was performed prior to and after administration of intravenous contrast (100 cc of Isovue-370). Images were reconstructed in the axial, coronal, and sagittal planes. Comparison: Abdomen/pelvis CT on March 12, 2023 and January 27, 2022. ??Abdominal MRI on February 24, 2022. HISTORY: Neoplasm of uncertain behavior of right kidney. FINDINGS: Lower Chest: No focal consolidation. ??No pleural effusion. Liver: Similar multiple cysts, largest measuring 2.2 cm (4:34). Biliary: Normal gallbladder. ??No biliary ductal dilatation. ??Unchanged coarse calcification, possibly calcified lymph node, adjacent but external to the gallbladder fundus. Spleen: No splenomegaly. ??No focal lesions. ? Pancreas: No focal lesions. ??No ductal dilatation. Adrenal Glands: No nodules Kidneys/Ureters: Right: Interval increase in size of known right mid pole enhancing solid renal mass, now measuring 2.2 x 1.6 cm (4:155), with bulging of the local renal contour, and with a new 1.6 x 1.5 cm solid component that extends towards the renal pelvis (coronal 80,468:57). ??Prior maximal dimension was 1.4 cm in March 2023. ??Unchanged small cyst in the anterior mid pole. ??No stones or hydronephrosis. Left: No solid masses, stones or hydronephrosis. Bowel: No distention. Peritoneum/Retroperitoneum: No free fluid or free air. Lymph Nodes: No bulky lymphadenopathy. Vessels: Minimal atherosclerotic disease with vascular calcifications. No abdominal aortic aneurysm. Bones/Soft Tissues: Moderate scoliosis associated with multilevel degenerative changes. ??No acute suspicious bone lesions. ??Overlying soft tissues are unremarkable. Procedure Note Alli Herrera MD - 05/01/2024 CT ABDOMEN WO AND W CONTRAST TECHNIQUE: Multidetector CT of the abdomen was performed prior to andafter administration of intravenous contrast (100 cc of Isovue-370).Images were reconstructed in the axial, coronal, and sagittal planes. Comparison: Abdomen/pelvis CT on March 12, 2023 and January 27, 2022.Abdominal MRI on February 24, 2022. HISTORY: Neoplasm of uncertain behavior of right kidney. FINDINGS: Lower Chest: No focal consolidation. No pleural effusion. Liver: Similar multiple cysts, largest measuring 2.2 cm (4:34). Biliary: Normal gallbladder. No biliary ductal dilatation. Unchangedcoarse calcification, possibly calcified lymph node, adjacent but externalto the gallbladder fundus. Spleen: No splenomegaly. No focal lesions. Pancreas: No focal lesions. No ductal dilatation. Adrenal Glands: No nodules Kidneys/Ureters: Right: Interval increase in size of known right mid pole enhancing solidrenal mass, now measuring 2.2 x 1.6 cm (4:155), with bulging of the localrenal contour, and with a new 1.6 x 1.5 cm solid component that extendstowards the renal pelvis (coronal 80,468:57). Prior maximal dimension was1.4 cm in March 2023. Unchanged small cyst in the anterior mid pole.No stones or hydronephrosis. Left: No solid masses, stones or hydronephrosis. Bowel: No distention. Peritoneum/Retroperitoneum: No free fluid or free air. Lymph Nodes: No bulky lymphadenopathy. Vessels: Minimal atherosclerotic disease with vascular calcifications. Noabdominal aortic aneurysm. Bones/Soft Tissues: Moderate scoliosis associated with multileveldegenerative changes. No acute suspicious bone lesions. Overlying softtissues are unremarkable. IMPRESSION: Interval increase in size of the right mid pole solid renal mass, now witha new component that extends towards the renal pelvis. Findings areconcerning for renal cell carcinoma. Urology consult is recommended. -------- FINAL REPORT -------- Dictated By: Alli Herrera Dictated Date: 05/01/2024 11:15 ET Assigned Physician: Alli Herrera Reviewed and Electronically Signed By: Alli Herrera Signed Date: 05/01/2024 11:40 ET Workstation ID: [id number] Transcribed By: Self Edit Transcribed Date: 05/01/2024 11:15 ET us Jaycob Vega MD IMG CT PROCEDURES Final Res ult documented in this encounter Visit Diagnoses Diagnosis Neoplasm of uncertain behavior of right kidney documented in this encounter Administered Medications Inactive Administered Medications - up to 3 most recent administrations Medication Order MAR Action Action Date Dose Rate Site iopamidoL (ISOVUE-370) 370 mg iodine /mL (76 %) injection 100 mL 100 mL, intravenous, Once in imaging, Starting on Wed05/01/24 at 0955, For 1 dose Given 05/01/2024 10:04 AM EST 100 mL sodium chloride 0.9 % flush 10 mL 10 mL, intravenous, Once, On Wed05/01/24 at 1015, For 1 dose Given 05/01/2024 10:03 AM EST 10 mL documented in this encounter Care Teams Filter Press Pumper Relationship Specialty Start Date End Date Valeria Conway MD [address] [place], [place] PCP - General 11/17/22 documented as of this encounter
--- OUTSIDE RECORDS SUMMARY | 2024-05-31 15:41 | XMS_ITS | Patient Health Record ---
Author Organization [facility] Address [address] [place] [address] Care Team Providers Care Cubing Machine Tender Name Role Phone Margaret Valle [phone] Allergies Allergen (clinical drug ingredient) Drug/Non Drug Allergy documented on EMR Reaction Allergy Type Onset Date Status ZITHROMYCIN (uncoded) Skin Rash Allergy Active amoxicillin AMOXICILLIN Skin Rash Drug Allergy Act ayah BIAXIN Skin Rash Drug Allergy Active ciprofloxacin CIPRO Vomiting Drug Allergy Act ayah Reason For Referral No Information Medications Medication SIG (Take, Route, Frequency, Duration) Notes Start Date End Date Status Terazol 3 0.8 % 1 application at bed time Vaginal EVERY NIGHT X 3 for 3 day(s) 02/21/2020 Active Ginseng Active Fluconazole 150 MG 1 tablet Orally Ever y 3 days as needed for symptoms for 9 days 04/23/2020 Active Culturelle Active Estradiol Vaginal Cream 0.01% 1 Gram Vaginally Twice a week for 90 days 05/02/2020 Active Magnesium 1 ORAL daily for -3 Rasta-MJ 05/18/2011 Active Multivitamins 1 ORAL daily for -3 Rasta-MJ 05/18/2011 Active Estradiol 0.05 MG/24HR APPLY 1 PATCH TO SKIN TWICE A WEEK for 84 Active Vitamin D Active Biotin Active Fish Oil Active Progesterone Micronized 200 MG TAKE 1 CAPSULE BY MOUTH EVERYDAY AT BEDTIME (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 Yes How often did you have a dri nk containing alcohol in the past year? 2 to 3 times a week (3 points) How many drinks did you have on a typical day when you were drinking in the past year? 1 or 2 drinks (0 point) Points 3 Interpretation Positive Problems Problem Type SNOMED Code ICD Code Onset Dates Problem Status W/U Status Risk Notes Problem Candidal vulvovaginitis (44452962) Candidiasis of vulva and vagina (112.1) Active confirmed Other Problem Menopausal symptom (78660977) Symptomatic menopausal or female climacteric states (627.2) Active confirmed Major Problem Pruritus of genital organs (070673060) Pruritus of genital organs (698.1) Active confirmed Other Problem Osteoarthrosis (535682532) Osteoarthrosis, unspecified whether generalized or localized (715.9) Active confirmed Major Problem Atypical glandular cells on cervical Papanicolaou smear (481810068) Abnormal glandular Papanicolaou smear of cervix (795.00) Active confirmed Diag Problem Cervicovaginal cytology: Low grade squamous intraepithelial lesion (579992289) Papanicolaou smear of cervix with low grade squamous intraepithelial lesion (LGSIL) (795.03) Active confirmed Major Problem Gynecological examination normal (528089749578598) Routine gynecological examination (V72.31) Active confirmed Major Problem Screening for malignant neoplasm of colon (819745552) Special screening for malignant neoplasms, colon (V76.51) Active confirmed Major Plan Of Treatment Pending Test Test Name Order Date MAMMOGRAM, SCREENING 08/06/2014 MAMMOGRAM, SCREENING 08/19/2016 MAMMOGRAM, SCREENING 10/06/2019 Urinalysis 09/20/2017 Urinalysis 09/06/2018 Urinalysis 10/03/2018 THIN PREP,HPV,FERMIN IF HPV+ (>29YR)(DIAG) 10/03/2018 THIN PREP,HPV,FERMIN IF HPV+ (>29YR)(SCRN) 08/19/2016 MM Digital Mammo Screening 10/06/2019 MM Digital Mammo Screening 08/19/2016 COMPLETE URINALYSIS 05/04/2017 Insurance Providers Payer Name Payer Address Payer Phone Subscriber Number Group Number Insured Name Patient Relationship to Insured Coverage Start Date Coverage End Date [facility] [address] [facility] [id number] [phone] [id number] [facility] [id number] Self - patient is the insured Medical (General) History Medical History History ICD Code Anogenital pruritus, unspecified L29.3 Candidiasis of vulva and vagina B37.3 Osteoarthrosis, unspecified whether gene ralized or localized 715.9 Menopausal and female climacteric states N95.1 Low grade squamous intraepit helial lesion on cytologic smear of cervix (LGSIL) R87.612 Unspecified abnormal cytological finding s in specimens from cervix uteri R87.619 2017 Broke Rt Wrist Inconclusive mammogram R92.2 Hormone replacement therapy Z79.890 Atypical squamous cells of u ndetermined significance on cytologic smear of cervix (ASC-US) R87.610 Surgical History Surgery Date(Month/Year) [place] Teeth Tonsillectomy x1 Colposcopy Colonoscopy Hospitalization History Reason Date(Month/Year) Child See Surgical Hx
--- OUTSIDE RECORDS SUMMARY | 2024-05-31 15:41 | XMS_ITS | Clinical Summary ---
Author Organization [facility] [address] [place] [address] [place] [address] Phone Care Team Providers Care Wares Sorter Name Role Phone Valeria Conway MD Primary Care Provider + [phone] Encounters Date Type Department Care Team Description 05/01/2024 9:36 AM EST - 05/01/2024 11:59 PM EST Hospital Encounter CT Scan - [address] [phone] Neoplasm of uncertain behavior of right kidney Discharge Disposition: Home or Self Care from Last 3 Months Surgical History Surgery Date Site/Laterality Comments OTHER SURGICAL HISTORY 02/09/2022 PROCEDURE: HISTORY OTHER; COMMENT: COLONOSCOPY OTHER SURGICAL HISTORY 08/19/2020 PROCEDURE: HISTORY OTHER; COMMENT: KNEE MENISCUS ROOT TEAR REPAIR OTHER SURGICAL HISTORY 2006 PROCEDURE: HISTORY OTHER; COMMENT: COLONOSCOPY OTHER SURGICAL HISTORY 04/16/1987 PROCEDURE: HISTORY OTHER; COMMENT: CAESAREAN SECTION Medical History Medical History Date Comments Alternating constipation and diarrhea DX:Alternating constipation and diarrhea Closed fracture of distal en d of right radius DX:Closed fracture of distal end of right radius Dropfoot DX:Dropfoot; COM MENT: RIGHT Exertional hypotension DX:Exerti onal hypotension Fibrocystic breast changes DX:Fi brocystic breast changes HGSIL on cytologic smear of cervix DX:HGSIL on cytologic smear of cervix Lactose intolerance DX:Lactose i ntolerance Migraines DX:Migraines Osteopenia DX:Osteopenia Symptoms, such as flushing, sleeplessness, headache, lack of concentration, associated with the menopause DX:Symptoms, such as flushin g, sleeplessness, headache, lack of concentration, associated with the menopause Family History Medical History Relation Name Comments CABG Father Coronary artery disease Father Relation Name Status Comments Father Social History Tobacco Use Types Packs/Day Years Used Date Smoking Tobacco: Never Smokeless Tobacco: Never Alcohol Use Standard Drinks/Week Comments Yes 0 (1 standard drink = 0.6 oz pur e alcohol) Comments Unknown Sex and Gender Information Value Date Recorded Sex Assigned at Not on file Legal Sex Female 8:27 PM EST Gender Identity Not on file Sexual Orientation Not on file Obstetrics History Plan of Treatment Health Maintenance Due Date Last Done Comments Breast Cancer Screening 1955 Pneumococcal Vaccine: 50+ Years (1 of 1 - PCV) 10/13/2005 Zoster Vaccines (1 of 2) 10/13/2005 Cholesterol Screening (Lipid Panel) 04/02/2023 Colorectal Cancer Screening: Colonoscopy 04/02/2023 Depression Screening 04/02/2023 Falls Risk Assessment 04/02/2023 Hepatitis C Screening 04/02/2023 Medicare Annual Wellness Visit 04/02/2023 Osteoporosis Screening (Bone Density Screening) 04/02/2023 Social Influencers of Health Screening 04/02/2023 Influenza Vaccine (#1) 2023 9, 11/25/2017, 11/25/2017, Additional history exists RSV Immunization Patients 60+ Years Old (1 - 1-dose 75+ series) 10/13/2030 DTaP,Tdap,and Td Vaccines (4 - Td or Tdap) 08/22/2033 08/23/2023, 06/07/2012, 03/08/2002 COVID-19 Vaccine Completed 01/05/2024, , 01/06/2023, Additional history exists HIB Vaccines Aged Out No longer eligi ble based on patient's age to complete this topic HPV Vaccines Aged Out No longer eligi ble based on patient's age to complete this topic Hepatitis A Vaccines Aged Out No long er eligible based on patient's age to complete this topic Hepatitis B Vaccines Aged Out No long er eligible based on patient's age to complete this topic IPV Vaccines Aged Out No longer eligi ble based on patient's age to complete this topic MMR Vaccines Aged Out No longer eligi ble based on patient's age to complete this topic Meningococcal ACWY Vaccine Aged Out N o longer eligible based on patient's age to complete this topic Meningococcal B Vacine Aged Out No lo nger eligible based on patient's age to complete this topic RSV Immunization Patients Under 20 months Aged Out No longer eligible based on patient's age to complete this topic Varicella Vaccines Aged Out No longer eligible based on patient's age to complete this topic Procedures Procedure Name Priority Date/Time Associated Diagnosis Comments CT ABDOMEN WO AND W CONTRAST Routine 05/01/2024 9:56 AM EST Neoplasm of uncertain behavior of right kidney from Last 3 Months Results * CT Abdomen wo and w [...] Signed Date: 05/01/2024 11:40 ET Workstation ID: [id number] Transcribed By: Self Edit Transcribed Date: 05/01/2024 [...] Signed Date: 05/01/2024 11:40 ET Workstation ID: [id number] Transcribed By: Self Edit Transcribed Date: 05/01/2024 11:15 ET Jaycob Vega MD IM CT PROCEDURES Final Res ult from Last 3 Months Insurance [employer] MEDICARE Care Teams Wares Sorter Relationship Specialty Start Date End Date Valeria Conway MD [address] [place] PCP - General 11/17/22
== END 2024-05-31 14:17 | disposition home or self-care (01) ==
PROVIDERS: PCP Internal Medicine Geriatric Medicine; Visit Provider Physician Assistant
DX: L23.9 Allergic contact dermatitis, unspecified cause (principal)

== ENCOUNTER → 2024-05-31 13:13 | Outpatient (BNVA) | payer MEDICARE, SELFPAY | PROVIDERS: PCP Internal Medicine Geriatric Medicine; Visit Provider Physician Assistant ==

== ENCOUNTER 2024-06-17 09:19 | Outpatient (AMB) | payer MEDICARE, SELFPAY ==
--- OUTSIDE RECORDS SUMMARY | 2024-06-17 09:20 | XMS_ITS | Patient Health Record ---
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) for 90 Active Vitamin C Active Estradiol 0.05 MG/24HR 1 patch to skin Transdermal Once a week (Can only be dispensed by Internet Marketing Specialist [facility]OZ only) for 90 days 03/14/2020 Active [...] W/U Status Risk Notes Problem Candidal vulvovaginitis (86622319) Candidiasis of vulva and vagina (112.1) Active confirmed Other Problem Menopausal symptom (56595844) Symptomatic menopausal or female climacteric states (627.2) Active confirmed Major Problem Pruritus of genital organs (444323866) Pruritus of genital organs (698.1) Active confirmed Other Problem Osteoarthrosis (031437984) Osteoarthrosis, unspecified whether generalized or localized (715.9) Active confirmed Major Problem Atypical glandular cells on cervical Papanicolaou smear (200845740) Abnormal glandular Papanicolaou smear of cervix (795.00) Active confirmed Diag Problem Cervicovaginal cytology: Low grade squamous intraepithelial lesion (239138700) Papanicolaou smear of cervix with low grade squamous intraepithelial lesion (LGSIL) (795.03) Active confirmed Major Problem Gynecological examination normal (436034584874200) Routine gynecological examination (V72.31) Active confirmed Major Problem Screening for malignant neoplasm of colon (066010551) Special screening for malignant neoplasms, colon (V76.51) [...] Insured Coverage Start Date Coverage End Date [facility] [address] [facility] [id number] [facility] [address] Self - patient is [...] cervix (ASC-US) R87.610 Surgical History Surgery Date(Month/Year) [place] Teeth Tonsillectomy x1 Colposcopy Colonoscopy Hospitalization History Reason Date(Month/Year) Child See Surgical Hx
--- OUTSIDE RECORDS SUMMARY | 2024-06-17 09:20 | XMS_ITS | Clinical Summary ---
Author Organization [facility] [address] [place] [address] [place] [address] Phone Care Team Providers Care Records Officer Name Role Phone Valeria Conway MD Primary Care Provider + [phone] Encounters Date Type Department Care Team Description 05/01/2024 9:36 AM EST - 05/01/2024 11:59 PM EST Hospital Encounter CT Scan - [address] [phone] Neoplasm of uncertain behavior of right kidney [...] Influencers of Health Screening 04/02/2023 Influenza Vaccine (Season Ended) 2024 12/01/2018, 11/25/2017, 11/25/2017, Additional history exists RSV Immunization Adult Patients (1 - 1-dose 75+ series) 10/13/2030 DTaP,Tdap,and [...] age to complete this topic Meningococcal B Vaccine Aged Out No l onger eligible based on patient's age to complete [...] Signed Date: 05/01/2024 11:40 ET Workstation ID: [id number] Transcribed By: Self Edit Transcribed Date: 05/01/2024 [...] Signed Date: 05/01/2024 11:40 ET Workstation ID: [id number] Transcribed By: Self Edit Transcribed Date: 05/01/2024 11:15 ET Jaycob Vega MD IMG CT PROCEDURES Final Res ult from Last 3 Months Insurance [employer] MED[employer]ARE Care Teams Records Officer Relationship Specialty Start Date End Date Valeria Conway MD [address] [place] PCP - General 11/17/22
[2024-06-17 10:27] VITALS: BP 110/70; PULSE 80; TEMP 37; O2SAT 98; BMI 21.6
--- NOTE | 2024-06-17 10:27 | AM.OFFWIN_ITS ---
Intake Vital Signs 06/17/24 10:27 Height 5 ft 5.5 in Weight 132 lb BMI 21.6 BP 110/70 Blood Pressure Location Lt brachial Position Sitting Pulse 80 Pulse Source Pulse Oximeter Temp 98.6 F Temp Source Oral Pulse Oximetry (%) 98 Oxygen Delivery Method Room Air Intake Visit Reasons: EP Rash Patient Tobacco Use Status: Former Tobacco user Allergies amoxicillin Allergy (Mild, Verified 06/17/24 10:27) Unknown ciprofloxacin [From Cipro] Allergy (Mild, Verified 06/17/24 10:27) Unknown Sulfa (Sulfonamide Antibiotics) Allergy (Mild, Verified 06/17/24 10:27) Unknown z pack Allergy (Mild, Uncoded 05/31/24 13:23) Unknown PFSH Medical History Scoliosis Lumbar stenosis Kidney lesion Hypotension Surgical History Hx of section Hx of knee surgery Hx of colonoscopy Social History Household Members: None Alcohol intake: current Alcohol intake frequency: holidays/special occasions only Patient Tobacco Use Status: Former Tobacco user Review of Systems Const Denies fever(s) Skin/Breast Reports rash Physical Exam Vital Signs: Last Vital Signs Temp 98.6 F 06/17/24 10:27 Pulse 80 06/17/24 10:27 BP 110/70 06/17/24 10:27 Pulse Ox 98 06/17/24 10:27 Oxygen Delivery Method Room Air 06/17/24 10:27 BMI result Body Mass Index 21.6 Const General: cooperative, healthy appearing, no acute distress and alert Orientation/consciousness: patient oriented x3 Limitations: no limitations HEENT Head: Yes normal to inspection Ears: hearing grossly normal bilaterally General nose exam: Normal external nose present Resp Effort & Inspection: normal respiratory effort and able to speak in complete sentences Cardio Rate: regular rate Skin Rashes: rashes noted ( widespread raised maculopapular rash) Neuro General: patient oriented x3 Extrem General: Yes normal to inspection Assessment & Plan Assessment & Plan (1) Rash: Code(s): R21 - Rash and other nonspecific skin eruption Plan Severe Itching and Spreading Rash: - Patient experiencing severe itching and spreading rash, possibly exace rbated by scratching during sleep - Symptoms initially improved with prednisone but returned after discontinuation on May 30 - [id number] hydrocortisone cream used for three days, resulting in rash turning dark red - Itching started after using capsaicin patch - History of chronic urticaria and severe dust mite allergy, previously treated with allergy shots - Recent changes in laundry detergent to baking soda and vinegar have not resolved issue - patient would likely benefit from longer course/taper of prednisone however has upcoming surgery for RCC and is hesitant and does not want to take systemic steroids prior to surgery which is reasonable Plan: - Initiate high-dose cetirizine (Zyrtec) - Prescribe stronger topical corticosteroid cream - Apply twice daily, avoiding thin skin areas such as face and groin - Monitor response to treatment - If itching persists post-ablation, consider reinitiating prednisone pending surgical team approval - Educate patient on potential side effects of long-term steroid use, including impacts on blood pressure and adrenal function Medications: New triamcinolone acetonide 0.1% 1 appl topical BID 14 days 60 mL 0RF cetirizine stop hydroxyzine. May take higher dose cetirizine. up to 30 mg QD x 7 days 10 mg PO DAILY PRN 30 tabs 0RF allergy symptoms Coding Level of Care Code Est Pt Level 4 (37499) Diagnoses Rash R21
== END 2024-06-17 11:31 | disposition home or self-care (01) ==
PROVIDERS: PCP Internal Medicine Geriatric Medicine; Visit Provider Physician Assistant
DX: R21 Rash and other nonspecific skin eruption (principal)

== ENCOUNTER → 2024-06-17 09:19 | Outpatient (BNVA) | payer MEDICARE, SELFPAY | PROVIDERS: PCP Internal Medicine Geriatric Medicine | DX: R21 Rash and other nonspecific skin eruption (principal) | CPT/HCPCS: 99212 ==